=== PATIENT | male | born 1970 | race Caucasian/White ===

== ENCOUNTER 2025-08-18 13:46 | Outpatient (AMB) | payer BC, SELFPAY ==
--- NOTE | 2025-08-18 13:48 | MHC.PC.OV ---
Vital Signs 08/18/25 13:53 Height 5 ft 11.75 in Weight 178 lb BMI 24.3 BP 98/62 Blood Pressure Location Rt brachial Position Sitting Respiration 14 Pulse 74 Pulse Source Pulse Oximeter Temp 97.7 F Temp Source Temporal Artery Scan Pulse Oximetry (%) 96 Oxygen Delivery Method Room Air Intake Visit Reasons: [employer]-PE Intake Note: Sebastien presents in the office today to establish care. Allergies bee pollen (bee stings) Allergy (Severe, Verified 08/19/25 08:55) Anaphylaxis Seasonal Allergies Allergy (Verified 08/18/25 13:51) Runny Nose Medication List - Last Reconciled 08/19/25 by MELVIN Coronado epinephrine (EpiPen) 0.3 mg (0.3 mL) IM Q10M PRN Tobacco use date assessed: 08/18/25 Dental Screening Dental Screen Date: 08/18/25 Did you have a dental visit in the last 12 months?: Yes Did you have a dental problem in the last 6 months where you did not have access to dental care?: No Was dental information given to patient?: Patient has dentist HPI HPI Comments History of Present Illness Details This is a 55-year-old male with a past medical history of elevated liver enzymes and anaphylaxis to bee stings presenting to establish care. He transferred from [facility]. Patient has a colonoscopy scheduled on 11/01/2025 at [facility]. He did have a colonoscopy a few years ago, but the prep was not considered satisfactory. Denies family history of colon cancer. The patient completed venom immunotherapy with Allergy and immunology, Dr. Rasmussen. This was approximately 10-15 years ago. He does not have an up-to-date EpiPen. No recent stings. He exercises regularly. He rarely drinks alcohol if he goes out to dinner. When I evaluated him at [facility] he had elevated liver enzymes. His records have not transferred yet, but he reports that he did have a subsequent liver ultrasound that was negative. Denies abdominal pain, nausea, vomiting and jaundice. He says that his tetanus vaccination is up-to-date. He declines the flu vaccine. We discussed the shingles vaccine and pneumonia vaccines. He is up-to-date with eye and dental exams. Patient had a family member with bladder cancer who was a smoker. The patient is a nonsmoker. He sees Dermatology for skin exams. ROS: Constitutional: No unexplained weight loss, fever, chills, fatigue or night sweats. Eyes: No vision changes, blurry vision, double vision, eye pain, eye redness, eye discharge. ENT: No hearing loss, sneezing, congestion, runny nose or sore throat. Respiratory: No shortness of breath, cough or sputum production. Cardiovascular: No chest pain, chest pressure or chest discomfort. No palpitations or pedal edema. Gastrointestinal: No anorexia, nausea, vomiting or diarrhea. No abdominal pain or blood in stool. Genitourinary: No dysuria, hematuria, urinary frequency. He denies testicular masses, swelling, pain, discharge. Neurologic: No headache, dizziness, syncope, unilateral weakness, ataxia, numbness or tingling in the extremities. Musculoskeletal: No muscle pain, back pain, joint pain or swelling. Hematologic/Lymphatics: No bleeding or bruising. No painful lymph nodes. Skin: No rash Endocrine: No cold or heat intolerance. No polyuria or polydipsia. Psychiatric: No depression or anxiety. No SI/HI. Physical exam: Constitutional: Alert, in no distress. Head: Normocephalic. Eyes: Pupils are equal, round and reactive to light. Extraocular muscles intact. Ear, Nose and Throat: Canals clear. TMs normal. Normal nasal mucosa. No nasal discharge. No oral lesions. Neck: Supple, Full range of motion. No lymphadenopathy. No palpable thyroid masses. Respiratory: Clear to auscultation. Cardiovascular: S1 S2 regular. No murmurs. No carotid bruits. Gastrointestinal: Abdomen soft, non-tender, non-distended. Normal bowel sounds. No palpable masses. Genitourinary: Deferred. Neurologic: No focal neurological deficits. Symmetric patellar reflexes. Moves all extremities spontaneously. Sensation intact bilaterally. Skin: No rashes Musculoskeletal: No gross deformities. Normal range of motion. Extremities: Warm and well perfused. No clubbing, cyanosis or edema. Intact peripheral pulses bilaterally. Psychiatric: Normal mood and affect [facility] Medical History (Updated 08/19/25 @ 08:54 by MELVIN Coronado) Bee allergy status Screening for cardiovascular condition Elevated liver enzymes Routine physical examination Family History (Updated 08/18/25 @ 13:59 by Yumiko Faith CMA) Father Hypertension Bladder cancer Maternal Grandmother Cardiovascular disease Maternal Grandfather Stroke Paternal Grandfather Stroke Social History (Updated 08/18/25 @ 13:53 by Yumiko Faith [facility]) Housing: House Alcohol intake: current Patient Tobacco Use Status: Never used Tobacco e-Cigarette/Vaping Use: Never Used Second Hand Smoke Exposure: No service: No Current occupational status: employed 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 1. Little interest or pleasure in doing things: not at all 2. Feeling down, depressed, or hopeless: not at all 3. Trouble falling or staying asleep, or sleeping too much: not at all 4. Feeling tired or having little energy: not at all 5. Poor appetite or overeating: not at all 6. Feeling bad about yourself - or that you are a failure or have let yourself or your family down: not at all 7. Trouble concentrating on things, such as reading the newspaper or watching television: not at all 8. Moving or speaking so slowly that other people could have noticed. Or the opposite - being so fidgety or restless that you have been moving around a lot more than usual: not at all 9. Thoughts that you would be better off or of hurting yourself in some way: not at all Total score: 0 Depression Screening Interpretation: Negative Depression Screening Done: Yes 87760 - PHQ-9 Billing: Yes Source: Developed by Drs. Jim Hand, Alicia Kent, Rodolfo Ennis and colleagues, with an educational bhavana from [employer]. Thrive Questionnaire Date Thrive assessed: 08/18/25 I am a: Patient What is your living situation today?: I have a steady place to live Within the past 12 months, did the food you bought not last and you didn't have the money to get more?: Never true Within the past 12 months, did you worry whether your food would run out before you got money to buy more?: Never true Do you have trouble paying for medicines?: No Do you have trouble getting transportation to medical appointments?: No Do you have trouble paying your heating and electricity bill?: No Do you have trouble taking care of your child, family member or friend?: No Do you have trouble with day-to-day activities such as bathing, preparing meals, shopping, managing finances, etc.?: No Are you currently unemployed and looking for a job?: No Are you interested in more education?: No Please select the resources that you would like help with: None Currently or been in a relationship where the following occur: No concerns reported THRIVE Score: 0 AUDIT C Alcohol Use Questionnaire (AUDIT-C) 1. How often do you have a drink containing alcohol?: Monthly or less 2. How many drinks containing alcohol do you have on a typical day when you are drinking?: 1 or 2 3. How often do you have six or more drinks on one occasion?: Never Total Score: 1 EJ-7 AMB Questionnaire EJ-7 Date EJ - 7 assessed: 08/18/25 Feeling nervous, anxious, or on edge: 0 = Not at all Not being able to stop or control worryin = Not at all Worrying too much about different things: 0 = Not at all Trouble relaxin = Not at all Being so restless that it is hard to sit still: 0 = Not at all Becoming easily annoyed or irritable: 0 = Not at all Feeling afraid as if something awful might happen: 0 = Not at all Total EJ-7 score (0-4 normal; 5-9 mild; 10-14 moderate; 15-21 severe): 0 Source: Developed by Drs. Jim Hand, Alicia Kent, Rodolfo Ennis and colleagues, with an educational bhavana from [employer]. EJ-7 Assessment Billing EJ-7 Assessment Tool: EJ-7 Assessment 96013 Physical exam (Primary Care) Vital Signs: Last Vital Signs Temp 97.7 F 08/18/25 13:53 Pulse 74 08/18/25 13:53 Resp 14 08/18/25 13:53 BP 98/62 08/18/25 13:53 Pulse Ox 96 08/18/25 13:53 Oxygen Delivery Method Room Air 08/18/25 13:53 BMI result Body Mass Index 24.3 Tobacco/Smoking Status: Tobacco use Status Tobacco use date assessed 08/18/25 08/18/25 14:00 Patient Tobacco Use Status Never used Tobacco 08/18/25 14:00 e-Cigarette/Vaping Use Never Used 08/18/25 14:00 PHQ-9: PHQ-9 Score PHQ-9: Total score 0 08/18/25 14:27 Depression Screening Interpretation: Negative Thrive Assessment: Date of Thrive Assessment Date Thrive assessed 08/18/25 08/18/25 13:49 Currently or been in a relationship where the following occur: No concerns reported Coding Level of Care Code New Pt Prev Care 40-64y(35671) Diagnoses Routine physical examination Z00.00 Elevated liver enzymes R74.8 Screening for cardiovascular condition Z13.6 Bee allergy status Z91.030 Additional Codes EJ-7 Assessment Billing - EJ-7 Assessment Tool: EJ-7 Assessment 61187 ([id number]) PHQ-9 - 06459 - PHQ-9 Billing: Yes ([id number]) Assessment & Plan Assessment & Plan (1) Routine physical examination: Code(s): Z00.00 - Encounter for general adult medical examination without abnormal findings Category: Medical Plan: Patient is seen today for a routine physical. As part of this visit we reviewed the following issues, which are considered and essential part of preventative health in this age group: - Testicular cancer screening, which includes self exam teaching - Screening for colon cancer - Discussed Prostate cancer screening and PSA ordered - Blood pressure screening annually - Cholesterol screening - Nutritional and exercise counseling - Counseling of injury prevention including fire prevention, smoke alarms and seat belt usage - Screening for depression - Education about skin cancer - Recommendations about immunizations - Recommendation of an eye exam - Screening for substance abuse (2) Elevated liver enzymes: Code(s): R74.8 - Abnormal levels of other serum enzymes Category: Medical Plan: Prior evaluation at [facility]. Records transfer pending. Check liver enzymes. (3) Screening for cardiovascular condition: Code(s): Z13.6 - Encounter for screening for cardiovascular disorders Category: Medical (4) Bee allergy status: Code(s): Z91.030 - Bee allergy status Category: Medical Plan: Avoidance measures reviewed. He completed immunotherapy. Advised to carry Zyrtec or Benadryl and EpiPen and reviewed proper administration of medications. Call 911 if EpiPen is used. Plan Schedule physical exam in 1 year. Orders: Orders Comprehensive Met. Panel 08/18/25 R74.8 - Abnormal levels of other serum enzymes, Z00.00 - Encounter for general adult medical examination without abnormal findings, Z13.6 - Encounter for screening for cardiovascular disorders Complete Blood Count no Diff 08/18/25 R74.8 - Abnormal levels of other serum enzymes, Z00.00 - Encounter for general adult medical examination without abnormal findings, Z13.6 - Encounter for screening for cardiovascular disorders Lipid Panel 08/18/25 E78.5 - Hyperlipidemia, unspecified, R74.8 - Abnormal levels of other serum enzymes, Z00.00 - Encounter for general adult medical examination without abnormal findings, Z13.6 - Encounter for screening for cardiovascular disorders Prostate Specific Antigen 08/18/25 R74.8 - Abnormal levels of other serum enzymes, Z00.00 - Encounter for general adult medical examination without abnormal findings, Z12.5 - Encounter for screening for malignant neoplasm of prostate, Z13.6 - Encounter for screening for cardiovascular disorders UA w Microscopic 08/18/25 R39.9 - Unspecified symptoms and signs involving the genitourinary system Medications: New epinephrine (EpiPen) for 2 doses 0.3 mg (0.3 mL) IM Q10M PRN 2 ea 0RF anaphylaxis
[2025-08-18 13:53] VITALS: BP 98/62; PULSE 74; RESP 14; TEMP 36.5; O2SAT 96; BMI 24.3
--- OUTSIDE RECORDS SUMMARY | 2025-08-18 17:32 | XMS_ITS | Data Portability ---
Author Organization [place] - [facility], Allergy Address [address] [facility] [address] [place] [address] Assessment Encounter Date Assessment Date Assessment LastModified by Organization Details LastModified Time 10/19/2024 10/19/2024 A dilated vessel was noted on the right anterior inferior nasal septum. The patient elected to proceed with cautery today. He tolerated the procedure well. Post procedure care and epistaxis precautions were reviewed. He will follow up if needed. [email or web address] Not available 10/19/2024 10:58:39 Plan of Treatment Reminders Order Date Submit Date Provider Last Modified By Organization Details Last Modified Time Details Appointments None record ed. Lab None record ed. Referral None record ed. Procedures None record ed. Surgeries None record ed. Imaging None record ed. Medication Orders None record ed. Patient TargetsNo targets recorded. Patient InstructionsNo instructions recorded. Reason for Referral None Reported. Problems Name Problem SNOMED Code Status Onset Date Resolution Date Notes Provider Name and Address Organization Details Recorded Time Bleeding from nose 518447938 Active 024 Epista xis; Note: Date Diagno sed: 11/10/19 24 2:12 PM (R04.0 ) Not Available [facility] 4 02:38:46 Anterior epistaxis 308488378 Active 024 Carrie page [place] - [facility] 10:58:43 Problem Notes None recorded. Procedures Surgical History Date Name Laterality Status Provider Name and Address Organization Details Recorded Time 4 Epistaxis Simple Nasal Cautery Right completed Carrie Cardona [place] - [facility] 10/19/2024 10:57:59 Imaging Results None recorded. Procedure Notes None recorded. Medical Equipment None Reported. Vitals Date Recorded Body height Body mass index (BMI) Body weight Provider Name and Address Organization Details Last Updated DateTime 10/19/2024 182.88 cm 24.4 kg/m2 98496.63 g Desire Singh [place] - [facility] 10/19/2024 10:19:46 Social History None recorded. Functional Status None recorded. Mental Status None recorded. Family History Nothing Reported. Medical History No medical history recorded. Past Encounters Encounter ID Performer Location Encounter Start Date Encounter Closed Date Diagnosis/Indication Diagnosis SNOMED-CT Code Diagnosis ICD10 Code Diagnosis IMO Codes Diagnosis Note [id number] CARRIE CARDONA PA-C [facility] [address] [address] 10/19/2024 10:01:30 10/19/2024 11:09:18 Anterior epistaxis 990991563 R04.0 Health Concerns Section Related Observation LastModified by Organization Detai ls LastModified Time None Recorded Concern Status LastModified by Organization Details LastModified Time None Recorded Advance Directives Directive None Recorded Payers Insurance Date Sequence Insurance Name Policy Number Policy Nevarez Covered Member ID Nevarez Member ID Guarantor Name 10/19/2024 1 [place]: OVI ALBERTO [id number] 4 Sebastien De Leon [id number] Sebastien De Leon Notes Date Note Type Note Provider Name and Address Organization Details Recorded Time 10/19/2024 text/html ROS as noted in the HPI 54 year old male presents today for evaluation of epistaxis.He was last seen for this in November but no procedure was done because no vessel was found. He has been having difficulty again with right sided epistaxis. The last nosebleed was yesterday. The nosebleeds are brief and easily controlled. DEAN GILES MD [address] [place] [address], [phone], [place] - [facility] 10/20/2024 12:15:46
== END 2025-08-18 14:27 | disposition home or self-care (01) ==
LOC: HO.HMCFM 13:47
PROVIDERS: PCP Physician Assistant Medical; Visit Provider Physician Assistant Medical
DX: Z00.00 Encounter for general adult medical examination without abnormal findings (principal); R74.8 Abnormal levels of other serum enzymes; Z13.6 Encounter for screening for cardiovascular disorders; Z91.030 Bee allergy status

== ENCOUNTER → 2025-08-18 13:46 | Outpatient (BNVA) | payer BC, SELFPAY | PROVIDERS: PCP Physician Assistant Medical; Visit Provider Physician Assistant Medical | DX: Z00.00 Encounter for general adult medical examination without abnormal findings (principal); R74.8 Abnormal levels of other serum enzymes; Z91.030 Bee allergy status; Z13.31 Encounter for screening for depression; Z13.39 Encounter for screening examination for other mental health and behavioral disorders | CPT/HCPCS: 96127 ==

== ENCOUNTER 2025-08-19 09:18 | Outpatient (REF) | payer BC, SELFPAY ==
[2025-08-19 11:30] LABS: Appearance Urine Clear; Glucose Urine UA Negative (Negative); PH 6.0 (5.0-9.0); Specific Gravity - Urine 1.015 (1.005-1.025)
[2025-08-19 11:35] LABS: Hematocrit 42.5 % (42.0-52.0); Hemoglobin 14.5 g/dl (14.0-18.0); Mean Corpuscular HGB Conc 34.1 g/dl (31.0-36.0); Mean Corpuscular Hemoglobin 29.6 pg (27.0-33.0); Mean Corpuscular Volume 86.7 fL (80.0-98.0); NRBC Abs Auto 0.000 X10*3/uL (0.0-0.012); NRBC Pct Auto 0.0 /100WBC (0.0-0.2); Platelet Count 293 X10*3/uL (160-400); Red Blood Count 4.90 X10*6/uL (4.60-5.80); White Blood Count 3.9 X10*3/uL (4.8-10.8)
[2025-08-19 12:24] LABS: Alanine Aminotransferase 31 U/L (0-40); Albumin Level 4.7 g/dL (3.5-5.0); Alkaline Phosphatase 45 U/L (39-117); Anion Gap 11 (12-20); Aspartate Amino Transferase 38 U/L (5-37); Blood Urea Nitrogen 18 mg/dL (9-16); Calcium 9.2 mg/dL (8.4-10.2); Carbon Dioxide 27 mmol/L (22-29); Chloride 104 mmol/L (96-108); Cholesterol 159 mg/dL (<200); Estimated Glomerular Filt Rate > 60; HDL Cholesterol 61 mg/dL (>40); Potassium 4.9 mmol/L (3.3-5.1); Sodium 137 mmol/L (135-145); Total Protein 7.3 g/dL (6.5-8.0); Triglycerides 45 mg/dL (<150)
[2025-08-19 15:07] LABS: Prostate Specific Antigen 4.67 ng/mL (<0.05-4.0)
== END 2025-08-19 09:19 | disposition home or self-care (01) ==
LOC: HO.WFDLDS 09:18
PROVIDERS: Visit Provider Physician Assistant Medical
DX: Z00.00 Encounter for general adult medical examination without abnormal findings (principal); Z13.6 Encounter for screening for cardiovascular disorders; Z12.5 Encounter for screening for malignant neoplasm of prostate; R74.8 Abnormal levels of other serum enzymes; R39.9 Unspecified symptoms and signs involving the genitourinary system; E78.5 Hyperlipidemia, unspecified
CPT/HCPCS: 36415; 80053; 80061; 81001; 84153; 85027

== ENCOUNTER 2025-10-25 09:57 | Outpatient (REF) | payer BC, SELFPAY ==
--- OUTSIDE RECORDS SUMMARY | 2025-10-25 10:51 | XMS_ITS | Clinical Summary ---
Author Organization [facility] Address [address] [place] [address] Care Team Providers Care Collection Technician Name Role Phone Bladimir Contreras MD Primary Care Provider [phone] Social History Tobacco Use Types Packs/Day Years Used Date Smoking Tobacco: Never Assessed Sex and Gender Information Value Date Recorded Sex Assigned at Not on file Legal Sex Male 5:19 PM EST Gender Identity Not on file Sexual Orientation Not on file Plan of Treatment Not on file Care Teams Collection Technician Relationship Specialty Start Date End Date Bladimir Contreras MD PCP - General 09/12/14
--- OUTSIDE RECORDS SUMMARY | 2025-10-25 10:51 | XMS_ITS | Data Portability ---
Author Organization [place] - [facility], Allergy Address [address] [facility] [address] [place] [address] Assessment Encounter Date Assessment Date Assessment LastModified [...] Organization Details Recorded Time Bleeding from nose 120496863 Active 024 Epista xis; Note: Date Diagno sed: 11/10/19 24 2:12 PM (R04.0 ) Not Available [facility] 4 02:38:46 Anterior epistaxis 038337062 Active 024 Carrie page [place] - [facility] 10:58:43 Problem Notes None recorded. Procedures Surgical History Date Name Laterality Status Provider Name and Address Organization Details Recorded Time 4 Epistaxis Simple Nasal Cautery Right completed Carrie Cardona [place] - [facility] 10/19/2024 10:57:59 Imaging Results None recorded. Procedure Notes None recorded. Medical Equipment None Reported. Vitals Date Recorded Body height Body mass index (BMI) Body weight Provider Name and Address Organization Details Last Updated DateTime 10/19/2024 182.88 cm 24.4 kg/m2 25885.63 g Desire Singh [place] - [facility] 10/19/2024 10:19:46 Social History None recorded. Functional Status None recorded. Mental Status None recorded. Family History Nothing Reported. Medical History No medical history recorded. Past Encounters Encounter ID Performer Location Encounter Start Date Encounter Closed Date Diagnosis/Indication Diagnosis SNOMED-CT Code Diagnosis ICD10 Code Diagnosis IMO Codes Diagnosis Note [id number] CARRIE CARDONA PA-C [facility] [address] [address] 10/19/2024 10:01:30 10/19/2024 11:09:18 Anterior epistaxis 694329765 R04.0 Health Concerns Section Related Observation LastModified by Organization Detai ls LastModified Time None Recorded Concern Status LastModified by Organization Details LastModified Time None Recorded Advance Directives Directive None Recorded Payers Insurance Date Sequence Insurance Name Policy Number Policy Nevarez Covered Member ID Nevarez Member ID Guarantor Name 10/19/2024 1 [employer]: OVI ALBERTO [id number] 4 Sebastien De Leon [id number] Sebastien De Leon Notes Date Note [...] brief and easily controlled. DEAN GILES MD [address] [place] [address], [phone], [place] - [facility] 10/20/2024 12:15:46
[2025-10-25 11:17] LABS: MANUAL DIFF FLAG NO
[2025-10-25 11:33] LABS: Hematocrit 41.1 % (42.0-52.0); Hemoglobin 13.9 g/dl (14.0-18.0); Imm Gran Abs Auto 0.01 X10*3/uL (0.00-0.03); Imm Gran Pct Auto 0.2 % (0.0-0.4); Lymphocytes Absolute Auto 1.8 X10*3/uL (1.2-4.9); Mean Corpuscular HGB Conc 33.8 g/dl (31.0-36.0); Mean Corpuscular Hemoglobin 29.6 pg (27.0-33.0); Mean Corpuscular Volume 87.4 fL (80.0-98.0); NRBC Abs Auto 0.000 X10*3/uL (0.0-0.012); NRBC Pct Auto 0.0 /100WBC (0.0-0.2); Platelet Count 300 X10*3/uL (160-400); Red Blood Count 4.70 X10*6/uL (4.60-5.80); White Blood Count 4.8 X10*3/uL (4.8-10.8)
[2025-10-25 12:15] LABS: Prostate Specific Antigen 4.26 ng/mL (<0.05-4.0)
== END 2025-10-25 09:58 | disposition home or self-care (01) ==
LOC: HO.WFDLDS 09:57
PROVIDERS: Visit Provider Physician Assistant Medical
DX: R97.20 Elevated prostate specific antigen [PSA] (principal); D72.819 Decreased white blood cell count, unspecified; Z12.5 Encounter for screening for malignant neoplasm of prostate
CPT/HCPCS: 84153; 85025

== ENCOUNTER 2025-11-02 13:45 | Outpatient (AMB) | payer BC, SELFPAY ==
--- NOTE | 2025-11-02 13:52 | MHC.OFFVIS ---
Intake Visit Reasons: Elevated PSA/UA/PVR(SET) Intake Note: Patient is present for ELEVATED PSA/UA/PVR Urology Medication:NONE Antibiotic Allergy:NONE Blood Thinner:NONE TODAY S PVR:0ML'S Agricultural Service Technician Required: No Allergies bee pollen (bee stings) Allergy (Severe, Verified 11/02/25 14:29) Anaphylaxis Seasonal Allergies Allergy (Verified 11/02/25 14:29) Runny Nose Medication List - Last Reconciled 11/02/25 by WAYLON Beard epinephrine (EpiPen) 0.3 mg (0.3 mL) IM Q10M PRN HPI Comments Details: Lisa is a very pleasant 55-year-old male patient of Dr. Nieto. He has a past medical history of elevated liver enzymes. He presents to the office today as a new patient for an elevated PSA. In discussion with the patient today he reports having followed up with his PCP at which time he was noted to have an elevated PSA and recommendations were made for urology referral for further assessment evaluation. These results were reviewed and communicated with the patient today. PSA: 08/27 4.7, 10/27 4.3 When asked he denies any known family history of prostate cancer. He denies any bothersome urinary issues. He does report at times he experiences urinary frequency however believes this is related to his increased in caffeine consumption as well as p.o. water intake. We did discussed at length potential causes of elevated PSA. We did discussed further treatment options and risks and benefits of these treatment options. DUANE was performed no nodules or masses palpated. We discussed redraw of PSA with no sex the night before, no caffeine morning of, and no heavy lifting 1-2 days prior. We also discussed obtaining retroperitoneal ultrasound for further assessment evaluation. He denies urinary urgency, urinary frequency, incontinence, nocturia, hematuria, dysuria, foul smelling urine, changes to urinary stream, flank pain, fever, and or chills. He is happy with his current voiding parameters. In office urinalysis results reviewed with the patient today. PVR 0 mL. All questions were answered. He otherwise offers no other issues or concerns at this time. [facility] Medical History Decreased white blood cell count Elevated PSA Bee allergy status Screening for cardiovascular condition Elevated liver enzymes Routine physical examination Family History (Updated 08/18/25 @ 13:59 by Yumiko Faith CMA) Father Hypertension Bladder cancer Maternal Grandmother Cardiovascular disease Maternal Grandfather Stroke Paternal Grandfather Stroke Social History (Updated 08/18/25 @ 13:53 by Yumiko Faith CMA) Housing: House Alcohol intake: current Patient Tobacco Use Status: Never used Tobacco e-Cigarette/Vaping Use: Never Used Second Hand Smoke Exposure: No service: No Current occupational status: employed Current occupation: Automobile Mechanic Apprentice Current occupational exposures/hazards: No Cognitive needs: No Hearing needs: No Vision needs: No Review of Systems Const All systems reviewed & are unremarkable except as noted in HPI and below Physical Exam Const General: cooperative, healthy appearing, comfortable, no acute distress, well developed, alert and awake Orientation/consciousness: patient oriented x3 Limitations: no limitations HEENT Head: Yes normal to inspection, Yes normocephalic and Yes atraumatic Ears: hearing grossly normal bilaterally Eyes General: appearance normal, both eyes and all related structures Neck Neck: Yes normal visual inspection and Yes trachea midline Chest Chest palpation & inspection: normal inspection of the chest Resp Effort & Inspection: normal respiratory effort and able to speak in complete sentences Cardio Rate: regular rate GI Inspection: Yes normal to inspection General: Yes no CVA tenderness Back/Spine/Pelvis Back: no CVA tenderness Skin General skin exam: no rashes or lesions noted Neuro General: patient oriented x3 Extrem General: Yes normal to inspection Psych Appearance: grossly normal and well kempt Mental Status: mental status grossly normal Speech and movement: Normal speech and movement present and Clear speech present Affect: normal affect Attitude: cooperative Thought process: Normal thought process present Thought content: Normal thought content present Insight: Fair insight present (Psych) Judgement: Fair judgement present (Psych) Office Procedures Post Void Residual Post Residual Void Post Void Residual (PVR): 0 [id number]-[id number] Void Residual by ultrasound Results AMB Urinalysis, Automated UA Leukoctes 0 Marjorie/uL Last Edit by CHER Crawford on 11/02/25 14:02 UA Nitrite Negative Last Edit by CHER Crawford on 11/02/25 14:02 UA Urobilinogen 0.2 mg/dL Last Edit by CHER Crawford on 11/02/25 14:02 UA Protein 0 mg/dL Last Edit by CHER Crawford on 11/02/25 14:02 UA pH 6.5 Last Edit by CHER Crawford on 11/02/25 14:02 UA Blood 0 Juan/uL Last Edit by CHER Crawford on 11/02/25 14:02 UA Specific [place] 1.010 Last Edit by CHER Crawford on 11/02/25 14:02 UA Ketone Negative Last Edit by CHER Crawford on 11/02/25 14:02 UA Bilirubin 0 mg/dL Last Edit by CHER Crawford on 11/02/25 14:02 UA Glucose 0 mg/dL Last Edit by CHER Crawford on 11/02/25 14:02 Results Reviewed Results Reviewed: Laboratory Last Values Urine pH (Auto) 6.5 11/02/25 14:02 Specific [place] (Auto) 1.010 11/02/25 14:02 Urine Protein (Auto) 0 mg/dL 11/02/25 14:02 Glucose (UA)(Auto) 0 mg/dL 11/02/25 14:02 Urine Ketones (Auto) Negative 11/02/25 14:02 Urine Blood (Auto) 0 Juan/uL 11/02/25 14:02 Urine Nitrite (Auto) Negative 11/02/25 14:02 Urine Bilirubin (Auto) 0 mg/dL 11/02/25 14:02 Urine Urobilinogen (Auto) 0.2 mg/dL 11/02/25 14:02 Leukocyte Esterase (Auto) 0 Marjorie/uL 11/02/25 14:02 Assessment & Plan Assessment & Plan (1) Elevated PSA: Code(s): R97.20 - Elevated prostate specific antigen [PSA] Category: Medical Plan In office urinalysis results with the patient today; as noted above. PVR 0 mL. Most recent PSA results with the patient today; as noted above. We did discussed potential causes of elevated PSA as well as further treatment options and risks and benefits of these treatment options. Will obtain redraw of PSA % and free with no sex the night before, no caffeine morning of, and no heavy lifting 1-2 days prior. Will obtain retroperitoneal ultrasound for further assessment evaluation. He currently denies any bothersome urinary issues or concerns. He reports be happy with current voiding parameters. All questions were answered. Follow-up in 1-3 months with imaging and labs; or sooner with any issues, concerns, and or questions. Orders: Orders AMB Urinalysis Automated Today Z13.9 - Encounter for screening, unspecified US retroperitoneal comp Today R97.20 - Elevated prostate specific antigen [PSA] PSA,Total (Free>4and<10) Today R97.20 - Elevated prostate specific antigen [PSA] Patient Instructions: The patient had an opportunity to ask questions regarding the treatment plan. All questions were answered. Physical exam, labs, and imaging were discussed and reviewed in detail. As well as risks, benefits, and discussion of treatment choices. No major barriers to understanding were identified. The patient expressed understanding and agreement with the above treatment plan. The patient was made aware they should contact our office by phone for worsening of their current condition, the appearance of new symptoms, or with any questions or concerns. Compliance is encouraged with any medications and follow up testing that is ordered. It is a privilege to be allowed the opportunity to participate in? your urological care.? Again, if you have any questions or concerns If you have any questions or concerns please do not hesitate to contact me. The office is [phone]. This note is constructed using voice recognition software. While every effort has been made to ensure accuracy planisher errors may have been included. Yours sincerely, WAYLON Beard Coding Level of Care Code New Pt Level 3 (97302) Diagnoses Elevated PSA R97.20 CPT Codes Post Residual Void - PVR CPT Code: 65207-Cbtq Void Residual by ultrasound ([id number])
--- OUTSIDE RECORDS SUMMARY | 2025-11-02 15:04 | XMS_ITS | Clinical Summary ---
Author Organization [facility] Address [address] [place] [address] Care Team Providers Care Cover Creaser Name Role Phone Bladimir Contreras MD Primary Care Provider [phone] Social History Tobacco Use Types Packs/Day Years Used Date Smoking Tobacco: Never Assessed Sex and Gender Information Value Date Recorded Sex Assigned at Not on file Legal Sex Male 5:19 PM EST Gender Identity Not on file Sexual Orientation Not on file Plan of Treatment Not on file Care Teams Cover Creaser Relationship Specialty Start Date End Date Bladimir Contreras MD PCP - General 09/12/14
== END 2025-11-02 14:24 | disposition home or self-care (01) ==
LOC: HO.HUSH 13:46
PROVIDERS: PCP Physician Assistant Medical; Visit Provider Nurse Practitioner Family
DX: R97.20 Elevated prostate specific antigen [PSA] (principal); Z13.9 Encounter for screening, unspecified
CPT/HCPCS: 99203

== ENCOUNTER → 2025-11-02 13:45 | Outpatient (BNVA) | payer BC, SELFPAY | PROVIDERS: PCP Physician Assistant Medical; Visit Provider Nurse Practitioner Family | DX: R97.20 Elevated prostate specific antigen [PSA] (principal) | CPT/HCPCS: 51798; 81003 ==